=== PATIENT | female | born 1990 | race Asian ===

== ENCOUNTER 2024-09-26 10:45 | Outpatient (CLI) | payer BC, MEDICAID, SELFPAY ==
[2024-09-26 10:53] VITALS: RESP 16; TEMP 36.6
[2024-09-26] MEDS: TERBUTALINE 1 MG/ML INJ 0.25 MG SUBCUT (11:40)
--- NOTE | 2024-09-26 11:41 | P.OBCN_ITS ---
OB - CN: HPI Date of Consult Time Seen by Provider: 11:41 Date Seen: 09/26/24 Patient: Demetrius Patient Consult date: 09/26/24 Requesting Physician: Avril Parker MD Primary Care Provider: Emma Bah MD Consult Narrative Narrative: HPI: Viri is a 34-year-old 1 para 0 at 38 weeks 3 days gestation by last menstrual period of 01/02/2024 consistent with a 1st trimester ultrasound. Her due date is 10/08/2024. She is here in consultation from Dr. Emma Bah due to which presentation at term that was identified at a visit at the [facility] in [place] on 09/25/2024. She is interested in an external cephalic version. She has not had any problems during her other than advanced maternal age. And a left mid uterine fibroid measuring 4.8 x 3.9 x 4.4 cm on her first-trimester ultrasound at 8 weeks 0 days gestation performed on 02/27/2024. Placenta is anterior without previa. NIPT testing showed no evidence of increased risk for aneuploidy. The fetus is female. was conceived by IU why at the [facility] on 01/15/2024. She had an elevated ALT on liver function tests performed on 07/10/2024. Do not see indication for why liver function tests were performed. She had a right upper quadrant ultrasound performed on 07/18/2024 was normal with repeat liver function test performed on 07/24/2024 and ALT decreased to a normal of 26. Today the patient reports no contractions. Endorses normal movement. Denies leaking fluid vaginally, abnormal vaginal discharge, vaginal bleeding, back pain, nausea/vomiting, heartburn, swelling and headaches. I reviewed how an external cephalic version is performed. Risks associated with ECV include distress and placental abruption either of which could result in an emergency . Patient has not had anything to eat since 2:00 a.m.. She had sips of clear liquids until 9:00 a.m.. She states she is very hungry and thirsty. Her questions were answered and consent form for external cephalic version reviewed and signed. labs: 02/14/2024: Blood type A positive, antibody screen negative Treponemal a palladium: Negative/nonreactive HIV: Nonreactive Hepatitis-B surface antigen: Nonreactive Hepatitis-C antibody: Nonreactive Varicella immune hemoglobin 12.2 Platelet count 259 Rubella immunity not reported Last Pap 07/03/2023: Normal with negative HPV. 1 hour GTT: 115 GBS 09/11/2024: Negative History of Present Dating criteria: based on LMP care: good care Ultrasounds: normal 1st trimester US, normal mid trimester US and other Abnormal ultrasound findings: Bedside ultrasound 09/25/2024: Reported breech presentation. complications comment: AMA: primipara History History 1 Elective abortions Para 0 Spontaneous abortions Hx # Term Pregnancies Ectopic pregnancies Hx # Pregnancies Multiple births Number of Living Children 0 Labs Blood type: A (+) positive Rubella: unknown RPR/VDLR: nonreactive GBS status: negative HBsAG: negative Review of Systems Status of ROS: Reports: 10 or more systems reviewed and unremarkable except as noted in History and below Narrative: See narrative above [facility] PFS Surgical History (Updated 09/26/24 @ 11:53 by Avril Parker MD) No history of previous surgery Social History (Updated 09/26/24 @ 11:54 by Avril Parker MD) Narrative: Cis-gender, heterosexual woman Relationship status: . 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 E cigarette use: No Illicit/recreational drug use: No Dietary restrictions: None Smoking Status: Never smoker Meds Home Medications and Allergies Home Medications ?Medication ?Instructions ?Recorded ?Confirmed ?Type vit no.95-ferrous 1 tab PO DAILY 09/26/24 09/26/24 History fumarate 28 mg-folic acid 800 mcg tablet () Allergies Allergy/AdvReac Type Severity Reaction Status Date / Time No Known Drug Allergies Allergy Verified 09/26/24 11:17 OB - H&P: Exam Physical Exam: Vital signs: Temp Resp 97.8 F 16 09/26/24 10:53 09/26/24 10:53 Narrative: General: Pleasant, woman in no acute distress. Vital signs: Included in her electronic medical record. HEENT: Atraumatic, normocephalic Heart: The rate and rhythm without gallop, rub or murmur. Chest: Clear to auscultation bilaterally. Abdomen: Gravid, nontender with normal bowel sounds throughout. Bedside ultrasound: Lamont breech the head in the maternal right upper quadrant. EFM: Baseline: 130s. Accelerations: Present. Decelerations: Absent. Variability: Moderate. Reactive. Category 1. [place]: No contractions. SVE: Deferred Extremities: No pain or edema Neurologic: Normal deep tendon reflexes at the patella 2+/2 without clonus. OB - CN: A/P Assessment and Plan (1) Breech presentation, antepartum: Status: Acute Plan 1. Consent form reviewed and signed for external cephalic version.
--- NOTE | 2024-09-26 11:57 | PM.PROC ---
Procedure Note Time Seen by Provider: 12:26 Date Seen: 09/26/24 Date of procedure: 09/26/24 [address] [facility] bill your pro fee for this procedure?: Yes Procedure: Preprocedure diagnosis: 34-year-old at 38 weeks 3 days gestation with a fetus in earl breech presentation head in the maternal right upper quadrant. Postprocedure diagnosis: Same Procedure: Attempted external cephalic version Description of procedure: The patient was placed in the dorsal supine position. Bedside ultrasound was performed to verify position. The patient reviewed and signed an external cephalic version consent form. Coconut oil was applied to the patient's abdomen. One provider put hands on the patient's abdomen at the breech the other but there hands at the head. Attempt to turn the fetus in the counter-clockwise position was done 3 times without success. Three additional attempts to turn the fetus in the clockwise position were made without success. Ultrasound was performed between each attempt to verify no evidence of intolerance and the heart rate was reassuring every time. After 6 attempts do turn the fetus the fetus remained in the earl breech presentation. I discussed getting the patient scheduled for a primary low-transverse for breech presentation after unsuccessful ECV. Anesthesia for scheduled C-sections: Spinal. Anesthesia for most unscheduled C-sections: Epidural. Anesthesia for emergency : General endotracheal. Risks associated with include: Approximately 1% chance of hemorrhage during that would require transfusion of blood products, 2-5% chance of infection: She will receive IV Ancef prior to skin incision to prevent infection, chance of injury to organs that are adjacent to the uterus such as bladder, intestines, blood vessels, nerves, ureters 1/500. Chance of injury to the less than 1/65724. Typically women stay in the hospital 2-3 nights after a . activity restrictions: No lifting greater than 25 lb for 6 weeks, nothing vaginally such as intercourse or tampons for 6 weeks, no high impact/strenuous/core exercises for 6 weeks. No driving well taking narcotic pain medication: Approximately 2 weeks. Walking and walking up and down stairs are safe and she can do is much walking as she feels up to doing at any time . She is planning on seeing Dr. Bah for a history and physical exam tomorrow 09/27/24 or Monday09/30/24. Planning primary low-transverse on 10/01/2024 at 39 weeks 0 days gestation. Anesthesia: none and other (Nitrous gas) Asset Protection Associate: Candie Gandhi Estimated blood loss (mL): 0 IV fluids (mL): 0 Urine output (mL): 0 Pathology: none sent Condition: stable Disposition: observation
--- NOTE | 2024-09-26 13:21 | PC.OBNST ---
NST Note NST Note Start: 09/26/24 10:44 Freq: ONCE Status: Active Protocol: Document 09/26/24 13:20 BAW (Rec: 09/26/24 13:21 BAW No Response) NST Note 1 Para (# of births) 0 EDC 10/07/24 Gestational Age In Weeks & Days 38 Weeks & 3 Days High Risk Factors Advanced Maternal Age Patient Presented with Complaint(s) of Other Other Complaints ECV Reactive Yes Appropriate for Gestational Age Yes BEBO Greenberg RNC Date 09/26/24 Reactive Yes Appropriate for Gestational Age Yes BEBO Ford RN Date 09/26/24 OB NST charge Yes Complete NST Note via Write Note Yes The provider's electronic signature indicates the NST is reactive/appropriate for gestational age. *Note to provider: If an addendum is required, open the patient's chart and click on the note under the Nurse/Allied Health tab.
== END 2024-09-26 13:20 | disposition home or self-care (01) ==
LOC: OB 11:40 → OB CLI 11:44 → OB 13:04
PROVIDERS: PCP Family Medicine; Visit Provider Obstetrics & Gynecology
DX: O09.523 Supervision of elderly multigravida, third trimester (principal); O32.1XX0 Maternal care for breech presentation, not applicable or unspecified; Z3A.38 38 weeks gestation of pregnancy
CPT/HCPCS: 59025; 59412; 76815; G0463; J3105

== ENCOUNTER 2024-09-27 04:30 | Inpatient (IN) | payer BC, MEDICAID, SELFPAY ==
[2024-09-27] VITALS (20 sets, daily range): BP systolic 98–132; BP diastolic 44–78; PULSE 56–79; RESP 16–20; TEMP 36.4–36.8; O2SAT 96–100; BMI 30.9
[2024-09-27 03:22] LABS: Amnisure Rom* POSITIVE
--- NOTE | 2024-09-27 04:30 | PM.OBHPLI ---
OB - H&P: HPI Labor/Induction History of Present Illness Time Seen by Provider: 04:30 Date Seen: 09/27/24 Chief Complaint: The patient is a 34 year old 1 para 0 at 38w4d weeks gestation by IUI consistent with 8wk US, with known breech s/p failed version attempt yesterday, who presents with SROM at 205am today. Chief complaint: Maternity : 1 Para: 0 Narrative: Viri Jay is a 34 year old 1 para 0 at 38w4d weeks gestation by IUI consistent with 8wk US, with known breech position as of yesterday at failed external version attempt yesterday, presents with SROM at 205am today. pt reports felt gush of fluid at 2:05 and continuing to leak fluid since, clear. +FM. Pt chart notes fetus was cephalic last week and newly found to be breech this week. Attempt at version was unsuccessful yesterday. She is not feeling any contractions. Reports no recent illness. no headaches, vision changes or pain. significant for IUI Growth US 09/25/24 =3494g = 68% History of Present Dating criteria: other (IUI consistent with 8wk US) care: good care Ultrasounds: normal 1st trimester US, normal mid trimester US (had level 2 US due to AMA, was wnl) and other (Growth US 09/25/24 =3494g = 68%) Medical complications: other (pt reports elevated ALT earlier in , negative RUQ US and ALT improved on recheck) Labs Blood type: A (+) positive Rubella: nonimmune RPR/VDLR: nonreactive GBS status: negative HBsAG: negative Review of Systems Status of ROS: Reports: 10 or more systems reviewed and unremarkable except as noted in History and below Meds Home Medications and Allergies Home Medications ?Medication ?Instructions ?Recorded ?Confirmed ?Type vit no.95-ferrous 1 tab PO DAILY 09/26/24 09/27/24 History fumarate 28 mg-folic acid 800 mcg tablet () Allergies Allergy/AdvReac Type Severity Reaction Status Date / Time No Known Drug Allergies Allergy Verified 09/26/24 11:17 OB - H&P: Exam Physical Exam: Vital signs: Pulse BP Pulse Ox 73 114/75 98 09/27/24 03:03 09/27/24 03:03 09/27/24 03:03 Constitutional: Constitutional: no acute distress and cooperative Routine HEENT Exam: Head: Present normal inspection Eye: Present normal appearance ENT: Present mucous membranes moist Routine Respiratory Exam: Respiratory: Present CTA bilaterally Routine Cardiovascular Exam: Cardiovascular: RRR Detailed Labor and Delivery Exam: Patient Gravid: Yes Dilation (cm): 1 Effacement (%): 50 Cervix position: posterior Consistency: medium Contraction frequency (min): 4 Fetus (Single): Station: -3 Amniotic Membrane Status: SROM Amniotic Membrane Fluid Description: Clear Heart Rate Baseline: 130 Monitor Accelerations: Present Monitor Decelerations: None [facility] Variability: Moderate (6-25) Routine Extremities Exam: Extremities: Absent pedal edema Routine Psychiatric Exam: Present normal affect, normal thought process and cooperative OB - Problem Based A/P Additional Plan (1) Breech presentation, antepartum: Problem details: Unsuccessful ECV on 09/26/24. Status: Acute (2) AMA (advanced maternal age) primigravida 35+: Status: Acute (3) Premature rupture of membranes: Status: Acute (4) Term : Status: Acute Plan -Bedside US confirms breech presentation with head on right. -Dr Jose L Roque notified. Plan for primary c/s. OR crew notified. -GBS known negative -discussed with pt and SO, all ?'s answered
[2024-09-27 04:48] LABS: Basophils Absolute Auto 0.02 K/uL (0.00-0.30); Basophils Percent Auto 0.3 % (0.0-3.0); Eosinophils Absolute Auto 0.07 K/uL (0.00-0.50); Hematocrit* 38.4 % (33.0-51.0); Immature Granulocytes Abs Auto 0.04 K/uL (0.00-0.30); Immature Granulocytes Pct Auto 0.5 %; Lymphocytes Percent Auto 18.9 % (20-44); Mean Corpuscular HGB Conc 34 gm/dL (32-36); Mean Corpuscular Hemoglobin 32 pg (26-34); Mean Corpuscular Volume 95 fL (80-100); Monocytes Percent Auto 5.7 % (0.0-11.0); Neutrophils Percent Auto 73.6 % (42.0-72.0); Platelet Count* 259 K/uL (140-440); Red Blood Count* 4.06 m/uL (4.00-5.20); White Blood Count* 7.32 K/uL (4.50-11.00)
[2024-09-27] MEDS: LACTATED RINGERS 1000 ML 1,000 ML 125 ML IV ×2 (04:48→06:31)
[2024-09-27 04:59] LABS: Slide Review Reflex No
[2024-09-27] MEDS: AZITHROMYCIN 500 MG in 0.9 % SODIUM CHLORIDE 250 ml 250 ML 255 MG IVPB (05:00)
--- NOTE | 2024-09-27 05:16 | W.PM.H&PU ---
History & Physical Update History & Physical Update H&P Reviewed and patient assessed: No changes noted
--- NOTE | 2024-09-27 05:16 | PM.PROC ---
Procedure Note Time Seen by Provider: 07:08 Date Seen: 09/27/24 Date of procedure: 09/27/24 [address] [facility] bill your pro fee for this procedure?: Yes Procedure: Preoperative diagnosis: 34-year-old 1 para 0 at 38 and 4/7 weeks SROM at 2:05 a.m. on 09/27/2024 Breech presentation status post unsuccessful ECV on 09/26/2024 Breech presentation confirmed by bedside ultrasound x2 Postoperative diagnosis: Same Procedure: Primary low-transverse section Anesthesia: Spinal, TAPS block Surgeon: Avril Parker MD Cold Storage Superintendent: Not applicable Quantitative blood loss: 1135 mL IV Fluid: 2100 mL Urine output: 100 mL, clear urine at the end of the procedure Specimen: None Drain(s): Barba to gravity Findings: A live female infant was delivered from the footling breech position at 6:31 a.m.. Apgars were 8 at 1 min and 9 at 5 min, respectively. Infant weight: 8 lb 0 oz. Nuchal cord(s): No. The placenta was delivered spontaneously and complete at 6:33 a.m.. Amniotic fluid: Clear. Normal uterus, fallopian tubes and ovaries were noted. Other findings: None Procedure: Pierre was taken to the OR where spinal anesthetic was found be adequate. A Barba catheter was placed. The patient was then placed in the dorsal supine position with a leftward tilt. She was then prepped and draped in a normal sterile manner. A Pfannenstiel skin incision was made and carried through sharply to the underlying layer of fascia. Fascia was incised in the midline and this incision carried laterally with Nance scissors. The superior aspect of fascial incision was grasped with Leeroy clamps, tented up, and the rectus muscles dissected off with a combination of blunt and sharp dissection. The inferior aspect of the fascial incision was not dissected off the rectus muscles. The rectus muscles were in the midline. The peritoneum was entered bluntly. This opening was extended bluntly. An Jacobo-O self-retaining retractor was placed. A bladder flap was not created. Uterus was incised in a low transverse manner in the midline. This incision carried laterally with blunt pressure on the inferior and superior aspects of the uterine incision. The amniotic sac was ruptured. The 's head and body was delivered atraumatically. The was shown to the patient and her support person and then handed to waiting pediatric and nursing staff. The placenta was delivered spontaneously. The uterus was cleared of clots and debris. The uterine incision was re-approximated with the uterus in vivo. The 1st layer using 0-Vicryl in a running, locked manner. The 2nd layer using 0-Monocryl in a running, vertical, imbricating layer. Additional sutures needed for hemostasis: No. Excellent hemostasis was verified. The Jacobo retractor was removed. The rectus muscles were not reapproximated. The rectus muscles were then closely inspected to verify hemostasis. Hemostasis was obtained with bipolar cautery. The fascia was then re-approximated using 0-Maxon loop in a running manner. The subcutaneous tissue was then irrigated with saline and hemostasis obtained with bipolar cautery. The subcutaneous tissue was re-approximated using 3-0 plain gut in a running manner. The skin was reapproximated using 4-0 Monocryl in a running subcuticular manner. Exofin skin adhesive and a Mepiplex dressing were applied. The patient tolerated this procedure well. Sponge, lap and instrument counts were correct x2 active to the procedure. Patient was taken to the recovery area in stable condition. The patient received 2g of IV Ancef and 500mg of IV azithromycin prior to skin incision. She received 30 mg of IV Toradol at the end procedure. Anesthesia: spinal Estimated blood loss (mL): 1,135 IV fluids (mL): 2,100 Urine output (mL): 100 Pathology: none sent Condition: stable Disposition: floor
[2024-09-27] MEDS: CEFAZOLIN 2 GM INJ IVP (06:15)
[2024-09-27] MEDS: KETOROLAC 30 MG/ML inj IVP ×3 (06:48→19:36)
--- NOTE | 2024-09-27 07:26 | P.ANES_ITS ---
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
--- NOTE | 2024-09-27 07:26 | W.ANESCHARGE ---
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
--- NOTE | 2024-09-27 07:28 | P.NB_ITS ---
Nerve Block Nerve Block Time Seen by Provider: 07:15 Date Seen: 09/27/24 Type of block requested by surgeon for post-operative analgesia: TAP Side: bilateral Time out performed: Yes Verification of patient name: Yes Verification of date of : Yes Name of person performing procedure: Leonardo Mcginnis Continuous monitoring Was continuous monitoring of O2 sat, B/P, monitor car operator, recorded every 15 minutes?: Yes Procedure Ultrasound guided. Images saved: Yes Medications given in 5ml increments after negative aspiration: Marcaine %: 0.25 mL: 30 Needle gauge: 20 and Exparel mL: 10 Needle gauge: 20 Patient tolerated procedure well: Yes Block Charges Block Charge (with Pro Fee): TAP Bilateral Use of Ultrasound Machine for Block: Yes- US Guidance/pain block
[2024-09-27] MEDS: ACETAMINOPHEN 500 MG TABLET 1000 MG PO ×3 (10:21→22:13)
[2024-09-28] MEDS: KETOROLAC 30 MG/ML inj IVP ×3 (01:19→13:53)
[2024-09-28 01:22] VITALS: BP 109/70; PULSE 64; RESP 16; TEMP 36.3; O2SAT 97
[2024-09-28] MEDS: ACETAMINOPHEN 500 MG TABLET 1000 MG PO ×3 (04:18→22:36)
[2024-09-28 07:40] LABS: Hemoglobin* 10.7 gm/dL (12.0-16.0)
[2024-09-28] MEDS: DOCUSATE SODIUM 100 MG CAPSULE PO (08:05)
[2024-09-28 08:12] VITALS: BP 111/70; PULSE 57; RESP 16; TEMP 36.6; O2SAT 97
--- NOTE | 2024-09-28 09:39 | P.OBPN_ITS ---
OB - PN:Subj Subjective Date Seen: 09/28/24 Patient comments OB post-: no complaints [place] status: feeding status: exclusively Narrative: Viri is a 34 y.o. who was admitted to L & D for delivery due to breech presentation and SROM. ?She had an complicated by PPH- QBL: 1135mL.?The patient feels well. ?The pain is well controlled with current medic ations. ?She has no new complaints. ?She is breast feeding and reports things are going well.? the patient has done well.? Vitals have been stable.? She has remained afebrile.? Has a good appetite, is tolerating a general diet. ?She is voiding without difficulty.? She is passing gas and has not had a bowel movement.? She is ambulating and denies any dizziness.? Has Small amount of rubra lochia. Hemoglobin this morning 10.7mg/dL. OB - PN: Obj Exam Physical Exam: Vital signs: Temp Pulse Resp BP Pulse Ox O2 Del Method 97.8 F 57 L 16 111/70 97 Room Air 09/28/24 08:12 09/28/24 08:12 09/28/24 08:12 09/28/24 08:12 09/28/24 08:12 09/28/24 08:12 Narrative: GENERAL APPEARANCE:? normal affect, alert, no distress MOOD:? appropriate CHEST:? clear to auscultation HEART:? regular rate and rhythm ABDOMEN:? soft, non-tender the uterine fundus is At Umbilicus, Midline and is appropriate for the stage of recovery. EXTREMITIES:? normal and no edema Incision: Healing well, no surrounding erythema, abnormal induration or discharge. OB - PN: Obj Data Labs Labs: Laboratory Results - last 24 hr 09/28/24 07:22 Hgb 10.7 L OB - PN: A/P Delivery Assessment and Plan (1) Breech presentation, antepartum: Problem details: Unsuccessful ECV on 09/26/24. Status: Acute (2) AMA (advanced maternal age) primigravida 35+: Status: Acute (3) Premature rupture of membranes: Status: Acute (4) Term : Status: Acute Plan day: 1 Plan: routine care Comments: Anemia, start oral iron therapy. If stable, patient would like to consider discharge home tomorrow.
[2024-09-28 14:43] LABS: Rapid Plasma Reagin (RPR) Non Reactive (Non Reactive)
[2024-09-28] MEDS: FERROUS SULFATE 325 MG TABLET PO (17:02)
[2024-09-28 17:03] VITALS: BP 111/69; PULSE 65; RESP 16; TEMP 37; O2SAT 98
[2024-09-28] MEDS: OXYCODONE 5 MG TABLET PO (18:09)
[2024-09-28 19:58] VITALS: BP 109/70; PULSE 68; RESP 18; TEMP 36.8; O2SAT 97
[2024-09-28] MEDS: IBUPROFEN 600 MG TABLET PO (20:11)
[2024-09-29] MEDS: IBUPROFEN 600 MG TABLET PO ×4 (01:46→19:50)
[2024-09-29 01:47] VITALS: BP 123/79; PULSE 61; RESP 22; O2SAT 97
[2024-09-29] MEDS: ACETAMINOPHEN 500 MG TABLET 1000 MG PO ×4 (04:06→23:18)
[2024-09-29] MEDS: DOCUSATE SODIUM 100 MG CAPSULE PO (07:38)
[2024-09-29] MEDS: OXYCODONE 5 MG TABLET PO (09:05)
[2024-09-29 09:14] VITALS: BP 106/67; PULSE 64; RESP 16; TEMP 36.7; O2SAT 97
--- NOTE | 2024-09-29 09:30 | PM.OBPNVD1 ---
OB - PN:Subj Subjective Date Seen: 09/29/24 Patient comments OB post-: tolerating diet and flatus present status: Narrative: Viri is a 34 y.o. who was admitted to L & D for delivery due to breech presentation and SROM. ?She had an complicated due to hemorrhage.?The patient feels okay, although she has been struggling a bit with pain. Pain is worse with movement and associated to surgical incision. She has started to try Oxycodone now and it does help. She is and reports things are going well, but baby did decrease 9% in weight.? the patient has done well.? Vitals have been stable.? She has remained afebrile.? Has a good appetite, is tolerating a general diet. ?She is voiding without difficulty.? She is passing gas and has not had a bowel movement.? She is ambulating and denies any dizziness.? Has small amount of rubra lochia. ? OB - PN: Obj Exam Physical Exam: Vital signs: Temp Pulse Resp BP Pulse Ox O2 Del Method 98.1 F 64 16 106/67 97 Room Air 09/29/24 09:14 09/29/24 09:14 09/29/24 09:14 09/29/24 09:14 09/29/24 09:14 09/29/24 09:14 Narrative: GENERAL APPEARANCE:? normal affect, alert, no distress MOOD:? appropriate CHEST:? clear to auscultation HEART:? regular rate and rhythm ABDOMEN:? soft, non-tender the uterine fundus is -2 cm of Umbilicus, Midline and is appropriate for the stage of recovery. EXTREMITIES:? normal and no edema Incision: Healing well, no surrounding erythema, abnormal induration or discharge. OB - PN: Obj Data Labs Labs: Laboratory Results - last 24 hr 09/27/24 04:40 RPR Screen Non Reactive OB - PN: A/P Delivery Assessment and Plan (1) Breech presentation, antepartum: Problem details: Unsuccessful ECV on 09/26/24. Status: Acute (2) AMA (advanced maternal age) primigravida 35+: Status: Acute (3) Premature rupture of membranes: Status: Acute (4) Term : Status: Acute Plan day: 2 Plan: routine care Comments: Continue to work with pain management and ambulation. If stable, plan to discharge home tomorrow am.
--- NOTE | 2024-09-29 12:14 | PM.ANPOST ---
Post Anesthesia Note Post Anesthesia Note Patient seen: Inpatient Respiratory Status: adequate Cardiovascular Status: adequate Mental Status: baseline Pain: adequate Temp: baseline Anesthetic awareness: N/A Complications: none Follow care: none
[2024-09-29 16:56] VITALS: BP 104/66; PULSE 68; RESP 16; TEMP 36.6; O2SAT 98
[2024-09-29 19:48] VITALS: BP 111/69; PULSE 80; RESP 18; O2SAT 98
[2024-09-30] MEDS: IBUPROFEN 600 MG TABLET PO ×3 (01:20→14:31)
[2024-09-30] MEDS: ACETAMINOPHEN 500 MG TABLET 1000 MG PO ×2 (04:28→12:08)
[2024-09-30 04:56] VITALS: BP 116/72; PULSE 58; RESP 18; O2SAT 97
--- NOTE | 2024-09-30 07:33 | PM.OBDSVD1 ---
DS: Providers Provider Date Seen: 09/30/24 Date of admission: 09/27/24 04:30 Primary care physician: Emma Bah MD Admitting Clinician: Avril Parker MD Attending Physician on discharge: Zeny Melendrez CNM DS: Diagnosis Discharge Diagnosis (1) Status post primary low transverse section: Status: Acute Problem details: Girl, Ginger (2) care and examination immediately after delivery: Status: Acute (3) Lactating mother: Status: Acute (4) Anemia due to acute blood loss: Status: Acute Exam Narrative: Exam Narrative: GENERAL APPEARANCE:? normal affect, alert, no distress MOOD:? appropriate CHEST:? clear to auscultation HEART:? regular rate and rhythm ABDOMEN:? soft, non-tender the uterine fundus is At Umbilicus, Midline and is appropriate for the stage of recovery. EXTREMITIES:? normal and no edema INCISION: Healing well, no surrounding erythema, abnormal induration or discharge Const: Vital Signs, click to edit/add: Vital Signs - 24 hr 09/29/24 09:14 09/29/24 16:56 09/29/24 19:48 Temperature 98.1 F 97.8 F Pulse Rate [Pulse Oximeter] 64 68 80 Respiratory Rate 16 16 18 Blood Pressure [Le ft Arm] 106/67 104/66 111/69 Pulse Oximetry 97 98 98 Oxygen Delivery Me thod Room Air Room Air Room Air 09/30/24 04:56 Temperature Pulse Rate [Pulse Oximeter] 58 L Respiratory Rate 18 Blood Pressure [Le ft Arm] 116/72 Pulse Oximetry 97 Oxygen Delivery Me thod Documenting provider has reviewed patient's vital signs: yes OB - DS: Summary Hospital Course Hospital Course: Viri is a 34 y.o. G 1 P 1 who was admitted to [facility] with breech presentation. ?She had a section that was uncomplicated. The patient feels well. ?The pain is well controlled with current medications. ?She has no new complaints. ?She is breast feeding and reports things are going okay, she is working with RN and . the patient has done well.? Vitals have been stable.? She has remained afebrile.? Has a good appetite, is tolerating a general diet. ?She is voiding without difficulty.? She is passing gas and has not had a bowel movement.? She is ambulating and denies any dizziness.? Has small amount of rubra lochia. She is undecided about control for prevention. Reviewed recommended spacing as she mentioned they want another baby in 1 year. Problems: anemia Discharge home with baby.? Offered incision check in 1-2 weeks with OB at [place]. Follow up in 2 weeks and 6 weeks with [facility], patient prefers to return to Dr. Bah. , may see if needed? Hgb 10.7. Iron supplement ordered orally every other day? For pain control of perineum, breast and pelvic pain, take 600 mg Ibuprofen every 6 hours as needed by mouth or 1000 mg acetaminophen (Tylenol) every 6 hours by mouth as needed. You can alternate these so you are taking something every 3 hours as needed. A heating pad can also be used for your abdomen or breasts. You may also take docusate sodium up to twice daily to soften your stools and help to prevent constipation. You may wean off of it when your stools return to normal.? Peripartum Data delivery method: Primary C/S; Labored Procedures: Procedures Operation Date: 09/27/24 05:30 Actual Procedure Side Surgeon p Section Not Applicable Avril Parker MD complications: none [place] Infant Gender: Female Discharge Plan: Home Status at Discharge Functional status at discharge: independent ambulation Overall status at discharge: patient is progressing back to baseline Time Spent with Patient Time attestation: Total time spent providing and/or coordinating discharge services: Time spent: Less than 30 minutes Discharge Plan Discharge Disposition: Home, Self-Care Date of Admission: 09/27/24 04:30 Attending Provider on Discharge: Zeny Melendrez Primary Care Provider: Emma Bah Condition: Stable Anticipated Discharge Date/Time: 09/30/24 12:00 Discharge Medications: New ferrous sulfate 325 mg (65 mg iron) Tablet 325 mg PO Q48H Qty: 60 0RF docusate sodium 100 mg Capsule 100 mg PO BID PRNQty: 90 0RF ibuprofen 600 mg Tablet 600 mg PO Q6H PRN (Reason: Pain) Qty: 60 0RF oxycodone 5 mg Tablet 5 - 10 mg PO Q4H PRN (Reason: Pain) Qty: 15 0RF acetaminophen 500 mg Tablet 1,000 mg PO Q6H PRN (Reason: Pain) Qty: 0 0RF Continued PNV cmb#95-ferrous fumarate-FA [] 28 mg iron- 800 mcg tablet 1 tab PO DAILY Discharge Orders: Discharge Order (Routine); Ordered 09/30/24 Ordered By: Zeny Melendrez Patient Education: OB Over the Counter Medication Information, OB /Breast Feeding Additional Instructions: Discharge instructions were reviewed with the patient including signs and symptoms of infection and home going medications Lifting Restrictions: 20 pounds for 6 weeks No not submerge incision under water X 2 weeks? Nothing vaginally for 6 weeks: no tampons or intercourse Do not drive while taking narcotic pain medication(s) Off Work or School for 8 weeks Offered 1-2 week incision check with [facility]. Return to [facility] Provider for: 2-week visit: incision check, discuss feeding concerns, review control options and screen for anxiety/depression. 6-week visit for an annual exam. consultation services are available to all mothers and babies for the first year after delivery.? To make an appointment, please call [phone]. Activity Level: Activity as Tolerated Discharge Diet: Regular Follow Up Appointments: Emma Bah MD [Primary Care Provider] - Forms: [facility] Info Instructions
[2024-09-30 08:30] VITALS: BP 108/59; PULSE 62; RESP 16; TEMP 36.6; O2SAT 97
[2024-09-30] MEDS: OXYCODONE 5 MG TABLET PO (13:11)
== END 2024-09-30 15:08 | disposition home or self-care (01) | DRG 540 ==
LOC: OB OUT 04:39 → OB 04:39
PROVIDERS: Family Medicine; Admitting Provider Obstetrics & Gynecology; PCP Family Medicine; Visit Provider Obstetrics & Gynecology
PROC: 10D00Z1 Extraction of Products of Conception, Low, Open Approach (ICD-10-PCS; CPT 59514; principal; 2024-09-27 05:15)
DX: O32.8XX0 Maternal care for other malpresentation of fetus, not applicable or unspecified (principal); O42.92 Full-term premature rupture of membranes, unspecified as to length of time between rupture and onset of labor; O72.1 Other immediate postpartum hemorrhage; G89.18 Other acute postprocedural pain; O90.81 Anemia of the puerperium; D62 Acute posthemorrhagic anemia; Z3A.38 38 weeks gestation of pregnancy; Z37.0 Single live birth
CPT/HCPCS: 01961; 36415; 64488; 76942; 84112; 85018; 85025; 86592; 86850; 86900; 86901; 99140; A4314; A9270; J0456; J0665; J0666; J0690; J1100; J1885; J2371; J2405; J2590; J7050; J7120

== ENCOUNTER 2024-10-14 09:23 | Outpatient (CLI) | payer BC, MEDICAID, SELFPAY ==
--- NOTE | 2024-10-14 10:54 | P.LACCB_ITS ---
Consult Note - Mom Date of Visit Date of visit: 10/14/24 Reason for consultation: Assistance Needed and Low Milk Supply (questionable milk supply, needing to supplement) Visit Code: Visit Patient's Information Phone number: [phone] : 1 Para: 1 Allergies No Known Drug Allergies Allergy (Verified 09/26/24 11:17) Work Plans: return to work in [place], will want to continue pumping Delivery Information Delivery type: Primary C/S; Labored Gestational Age: 38+4 Gestational Weight For Age: AGA Weight: 3.629 kg Discharge Weight: 3.246 kg Percentage weight loss: 10.6 Baby's Information Baby's Age at Visit: 17 days Baby's Provider or Clinic: [facility] Jaundice: No Past Experience Past Experience: No Current Frequency of Day Feedings: ever 3 hours Frequency of Night Feedings: every 3-4 hours Both Breasts: Yes Suck: starts strong, gets sleepy after 5 minutes Latch: comfortable Length of Time: 10 minutes Goals: 1 year Pumping Pumping: Yes Quantity Pumped: 1-3 oz depending on timing of pump Supplementing EBM Supplement: Yes Formula Supplement: Yes Baby Elimination Number of Wet Diapers a Day: ea feeding Number of BM a Day: 6 or more/day; yellow and seedy Breast/Nipple Condition Breast Information: Breasts are symmetrical with rounded lower quadrants, intramammary distance is less than 1.5 inches. No erythema. Nipples are supple, everted prior to feeding. No cracks, blisters or bleeding. Breast Shape: Round Engorgement: No Maternal Nipple Condition - Left: Common Nipple Maternal Nipple Condition - Right: Common Nipple Sore Nipples: No Interventions for Sore Nipples: Lansinoh/Nipple Cream Baby Assessment Skin: Normal Tongue/frenulum: Normal/elastic Palate: Average Lips: Relaxed and Symmetrical Jaw Alignment: Symmetrical Mucosa: [place], moist Onsite Observation Pre-Feed weight: 3.866 kg (up 67 grams from clinic visit on 10/11) Post-Feed weight: 3.926 kg Milk Transferred (mL): 60 (babe then took 1/2 oz formula to be content) Position: Cradle Attachment/latch-on achieved: Easily Suck pattern: Suck burst and normal rest Swallow: Audible, consistent Behavior following feed: Relaxed, sleepy (sleepy, but wakens well with movement to latch to mom's other side) Pre-Nursing Left Nipple: Within Normal Limits Pre-Nursing Right Nipple: Within Normal Limits Post-Nursing Left Nipple: Within Normal Limits Post-Nursing Right Nipple: Within Normal Limits Assessments/Interventions Assessments/Interventions: Mom reports baby gets very sleepy at the breast. She nurses well for 5 minutes and then seems too sleepy to drink much. Mom switches her to the other breast and this repeats itself Baby then takes 1.5-1.7 oz of EBM or formula using a Lansinoh bottle; takes this down in less than 5 minutes. observation Bebo latches easily to mom's RIGHT breast, fairly wide, deep latch. Worked with mom to deepen latch some by getting baby's bottom lip flanged out Bebo has a very strong suckle with audible swallows. This lasts 6 minutes and then baby begins with some longer pauses but able to point out that when she starts up again, she does have strong sucks. After 8 minutes baby starts getting sleepy, but with some stimulation of baby and breast compression by mom, baby starts drinking again for 3 minutes. Baby transferred 30ml at this point. Mom then latches baby to her LEFT breast. Baby latches more deeply this time. Baby actively suckling and drinking for 10 minutes, then 5 more minutes of needing some stimulation to stay engaged in feeding. Baby transferred 24ml from this side. Dylane then relatched to mom's right side to see what she will do. Feeds for about 5 minutes before getting very sleepy. Dylane took 6 more mL. Total intake 60ml Mom does note office is cooler than baby's room and perhaps baby is more awake for this feeding than she is sometimes at home. Bebo calm for about 5 minutes and then starts rooting again. Mom offers bottle she brought with her; bebo takes 1/2 oz via paced bottle feeding and is content. Discussed positioning of baby and slowing feeding down to allow bebo to take what is needed for feeding, but not overfeed. This may also allow baby to feed more frequently at the breast thereby strengthening her suckling and increasing mom's milk supply. Education provided: Early feeding cues to maximize timing of latching, Asymmetric latch technique for wide/deep latch to increase milk, Transfer for baby and increase comfort for mom, Supply/demand nature of milk supply, Need for frequent stimulation/milk removal, Alternative feeding methods (SNS, cup, finger feeding, bottling) (paced bottle feeding reviewed/encouraged) and Pumping for milk management Feeding Plan: Discussed normal feeding behavior of breastfed babies is every 2-3 hours rather than strictly every 3 hours. Mom really wants more sleep at night so discussed topping carter baby after before bed nursing to see if mom can then get a solid 3-4 hours of sleep at night between feedings. Nursing more often may help baby get more breast milk, strengthen her suckling, and increase mom's supply. Discussed with mom pumping after feedings 3-4 times a day to increase her supply, and to have her EBM available for baby if/when needed. If bebo acts hungry after , offer supplement 1/2 oz at a time to be sure bebo gets what she needs, but also allows for frequent feedings during the day as mom is establishing her milk supply. Mom will continue PowerPump in the morning to see if this helps her supply. Mom ordered a Tea to see if this will help her supply some as well and she is working on staying hydrated. Follow-Up Suggested follow up: Phone call in 24-48 hours (if needed for follow up questions/concerns) and Appointment as needed Time Spent Time spent with patient (min): 90 (reviewing EMR and face to face with patient, her mother, and baby) Meds Home Medications and Allergies Home Medications ?Medication ?Instructions ?Recorded ?Confirmed ?Type vit no.95-ferrous 1 tab PO DAILY 09/26/24 09/27/24 History fumarate 28 mg-folic acid 800 mcg tablet () Allergies Allergy/AdvReac Type Severity Reaction Status Date / Time No Known Drug Allergies Allergy Verified 09/26/24 11:17
== END 2024-10-14 09:24 | disposition home or self-care (01) ==
PROVIDERS: PCP Family Medicine; Visit Provider Obstetrics & Gynecology
DX: Z39.1 Encounter for care and examination of lactating mother (principal)
CPT/HCPCS: G0463